=== PATIENT | male | born 1945 | race Caucasian/White ===

== ENCOUNTER 2024-09-15 09:06 | Day surgery (SDC) | payer OTHER ==
[~2024-09-15] VITALS: Ht 177.8 cm; Wt 74.2 kg
[~2024-09-15 09:06] MED LIST: ATOR20 PO; DICLOFENAC SOD100 GM TP; TADA10TA; Tranexamic Acid 100 ML IV ONE; VITAMIN D310 MC4 PO
[2024-09-15] MEDS ORDERED: CeFAZolin Sodium 2,000 MG VIAL ONE (09:11)
[2024-09-15] MEDS ORDERED: Midazolam HCl 1MG / ML 2ML Vial ONE (09:21)
[2024-09-15] MEDS ORDERED: Bupivacaine 0.5% HCl 5 MG/ML 30MLVIAL ONE (09:21)
[2024-09-15] MEDS ORDERED: Norco 5-325 Ta1 EACH PO (09:22)
[2024-09-15] MEDS ORDERED: NAPR220 PO (09:22)
[2024-09-15] MEDS ORDERED: Norco 10-325 T1 EACH PO (09:30)
[2024-09-15] MEDS ORDERED: FentaNYL Citrate 50 MCG/ML 2 ML Injection ONE (09:45)
--- NOTE | 2024-09-15 10:07 | NUR ---
09/15/24 Albina Gaspar TIME OUT PERFORMED AT BEDSIDE WITH PSYCHIATRIC AIDE INSTRUCTOR LOTUS ISAAC AT 0952. NERVE BLOCK STARTED AT 0956 NERVE BLOCK ENDED AT 1000 PT PLACED ON 3L O2 VIA N/C AND SPO2 AND HR MONITORED THROUGHOUT PROCEDURE. PT TOLERATED PROCEDURE WITHOUT ANY DIFFICULTIES.
[2024-09-15] MEDS ORDERED: Phenylephrine HCl 10mg/ml 1 ml Vial ONE (10:17)
--- NOTE | 2024-09-15 10:40 | NUR ---
09/15/24 1040 Peggy Simmons 1GM STARTED AT 1015 BY [facility] NURSE
[2024-09-15] MEDS ORDERED: Sugammadex Sodium 200 MG/2ML SDV (100 MG/ML) ONE (12:12)
--- NOTE | 2024-09-15 12:42 | NUR ---
09/15/24 1242 LUIS NUENZ PT CAME IN ON 15L VIA NON-REBREATHER. CURRENTLY 100% PT ABLE TO WAKE AND RESPOND BUT GOES BACK TO SLEEP. WILL TRIAL ON 10L O2
[2024-09-15 12:58] VITALS: BP 156/85
--- NOTE | 2024-09-15 13:18 | NUR ---
09/15/24 1318 LUIS NUNEZ EXPLAINED POLAR PACK, HOOKED UP. PT EATING AND DRINKING WO DIFF. CHANGED VITALS TO Q 10 MINUTES SO PT COULD BE ABLE TO HAVE USE OF RIGHT ARM.
== END 2024-09-15 14:05 | disposition home or self-care (01) ==
LOC: ORSCSDS 09:06
PROVIDERS: Orthopaedic Surgery Sports Medicine
PROC: 0LU14KZ Supplement Right Shoulder Tendon with Nonautologous Tissue Substitute, Percutaneous Endoscopic Approach (ICD-10-PCS; principal; 2024-09-15 10:30)
PROC: 0RBK4ZZ Excision of Left Shoulder Joint, Percutaneous Endoscopic Approach (ICD-10-PCS; principal; 2024-09-15 10:30)
PROC: 0LM14ZZ Reattachment of Right Shoulder Tendon, Percutaneous Endoscopic Approach (ICD-10-PCS; principal; 2024-09-15 10:30)
PROC: 0RNJ4ZZ Release Right Shoulder Joint, Percutaneous Endoscopic Approach (ICD-10-PCS; principal; 2024-09-15 10:30)
DX: M75.122 Complete rotator cuff tear or rupture of left shoulder, not specified as traumatic (principal); M75.22 Bicipital tendinitis, left shoulder; M75.42 Impingement syndrome of left shoulder; M13.812 Other specified arthritis, left shoulder
CPT/HCPCS: C1713; J0165; J0690; J2250; J2371; J2704; J3010; J7120; Q4125